=== PATIENT | female | born 1965 | race Caucasian/White ===

== ENCOUNTER 2023-07-30 07:41 | Observation (INO) ==
[~2023-07-30 07:41] MED LIST: Metoclopramide 5 MG/ML VIAL (10 mg) IV PRN; NS 0.45% 1000 ml BAG 1,000 ML IV SCH; Naloxone 0.4 mg VIAL 0.4 mg/ml 1 ml VIAL IV PRN; Ondansetron 4 mg VIAL 2 MG/ML 2 ml VIAL IV PRN
[2023-07-30] MEDS ORDERED: Propofol 10 MG/ML 20 ML BTL ONE (08:19)
[2023-07-30] MEDS ORDERED: Dexamethasone IV 4 MG/ML VIAL 1 ml VIAL ONE (08:19)
[2023-07-30] MEDS ORDERED: Lidocaine 2% PF 5 ML VIAL ONE (08:19)
[2023-07-30] MEDS ORDERED: Ondansetron 4 mg VIAL 2 MG/ML 2 ml VIAL ONE (08:19)
[2023-07-30] MEDS ORDERED: Midazolam 2 mg/2 ml VIAL 1 mg/ml 2 ml VIAL (2 mg) ONE (08:20)
[2023-07-30] MEDS ORDERED: fentaNYL 100 mcg/2 ml 50 MCG/ML VIAL ONE ×4 (08:20→13:15)
[2023-07-30] MEDS ORDERED: Rocuronium 50 mg VIAL 10 mg/ml 5 ml VIAL (50 mg) ONE ×2 (08:20→11:17)
[2023-07-30] MEDS ORDERED: Chlorhexidine MOUTHWASH 0.12% 15 ML UDC ONE (08:22)
[2023-07-30] MEDS ORDERED: Scopolamine 1 mg/72hr PATCH ONE (08:22)
[2023-07-30] MEDS ORDERED: ceFAZolin 2 GM in NS PREMIX 2 GM/100 ML BAG IVPB ONE (08:22)
[2023-07-30 08:34] LABS: Rapid COVID-19 Molecular Undetected (Undetected)
[2023-07-30] MEDS: Scopolamine 1 mg/72hr PATCH TRANSDERM ONE (08:41)
[2023-07-30] MEDS ORDERED: Lidocaine 1% w EPI 1:100,000 MDV 20 ML VIAL ONE (09:13)
[2023-07-30] MEDS ORDERED: Thrombin 5,000 UNITS 1 APPLIC KIT - topical use - TOPICAL ONE (09:13)
[2023-07-30] MEDS ORDERED: Gelfoam Sponge SIZE 100 SPONGE ONE (09:14)
[2023-07-30] MEDS ORDERED: Gelfoam 12-7 ADSORBABL SPONGE ONE (09:14)
[2023-07-30] MEDS ORDERED: ceFAZolin VIAL VIAL ONE (09:14)
[2023-07-30] MEDS ORDERED: Benzocaine/Menthol LOZ MT PRN (12:27)
[2023-07-30] MEDS ORDERED: Ondansetron 4 mg VIAL 2 MG/ML 2 ml VIAL IV PRN (12:27)
[2023-07-30] MEDS ORDERED: Senna TAB 8.6 mg TAB PO PRN (12:27)
[2023-07-30] MEDS ORDERED: Dextran 70/Hypromellose Tears Eye Drops 15 ml BTL (for Artificials Tears) BOTH EYES PRN (12:27)
[2023-07-30] MEDS ORDERED: Morphine 2 MG/ML SYRINGE IV PRN (12:27)
[2023-07-30] MEDS ORDERED: Calcium Carb (TUMS) 500 mg CHEW TAB PO PRN (12:27)
[2023-07-30] MEDS ORDERED: Phenol 1.4% Throat Spray BTL MT PRN (12:27)
[2023-07-30] MEDS ORDERED: Albuterol HFA INHALER 8 gm MDI INH PRN (12:29)
[2023-07-30] MEDS ORDERED: Albuterol 2.5mg/3 ml (0.083%) NEB.SOLN INH PRN (12:29)
[2023-07-30] MEDS: fentaNYL 100 mcg/2 ml 50 MCG/ML VIAL IV PRN (12:31)
[2023-07-30] MEDS ORDERED: fentaNYL 100 mcg/2 ml 50 MCG/ML VIAL IV PRN (13:19)
[2023-07-30] MEDS: Lactated Ringers 1000 ml BAG 1,000 ML IV SCH ×2 (14:15→14:22)
[2023-07-30] MEDS: Acetaminophen IV 1 GM/100ML 1,000 MG/100 ML BAG IV ONE (14:21)
[2023-07-30] MEDS: Buffered Lidocaine 1% SYRIN 1 ml INTRADERM ONE (14:22)
[2023-07-30] MEDS: BUPRENORPHINE HCL 75 MCG BUCCAL SCH (14:22)
[2023-07-30] MEDS: TAPENTADOL 50 MG PO PRN (16:27)
[2023-07-30] MEDS: Mometasone/Formoter 100/5 MDI INH SCH (19:28)
[2023-07-31] MEDS: Aspirin EC 81 mg TAB.EC (enteric coated) PO SCH (08:01)
== END 2023-07-31 10:59 | disposition home or self-care (01) ==
LOC: OR 07:41 → SSU 07:41
PROVIDERS: ADMIT Neurological Surgery; ATTEND Neurological Surgery